=== PATIENT | female | born 1955 | race Caucasian/White ===

== ENCOUNTER 2016-11-08 11:51 | Emergency (ER) | payer OTHER ==
--- NOTE | ~2016-11-08 | ER ---
PATIENT'S NAME: UNIQUE RASMUSSEN [facility] AGE: 61 Y [address] ROOM: [place] [address] LOCATION: [facility] ADMIT DATE: 11/08/2016 ER/Outpatient Report DISCHARGE DATE: 11/08/2016 FAMILY PHYSICIAN: Bhakti Mullen MD ATTENDING PHYSICIAN: Rigo Mckenna Time of arrival: 1230. Time of exam: 1230. CHIEF COMPLAINT: Shaking headache. HISTORY OF PRESENT ILLNESS: The patient states she started feeling shaking and feverish around 1115 today. She has been nauseated, but no vomiting. Did have some diarrhea stool. She thinks is due to the food that she ate. She is here visiting from [place]. Her was seen Tuesday night admitted for sepsis. She states she has recently finished some prednisone for a sinus infection, but has not been on any antibiotic for sinus infection. Continues to have sinus congestion. States she has been more tired lately, but relates that to her being ill and her sleeping at her friend's house. She denies having a cough. Has not had any pain anywhere other than the mild headache. She has not had any abdominal pain. She has not had any pain with urination. No change in her bowel pattern today. States that the diarrhea was yesterday. ALLERGIES: SHE HAS NO KNOWN ALLERGIES. CURRENT MEDICATIONS: On the chart and reviewed by me. PAST MEDICAL HISTORY: Seizures, recent sinus congestion with frequent sinus infections. SOCIAL HISTORY: She lives in [place] with her . Denies use of tobacco, drugs, or alcohol. REVIEW OF SYSTEMS: All negative other than those mentioned in the HPI. PHYSICAL EXAMINATION: VITAL SIGNS: She weighs 81.6 kg, blood pressure was 134/82, pulse of 90, respirations 18, temperature of 99.7, and O2 saturation was 96% on room air. GENERAL: She is awake, alert, and oriented x4. PATIENT'S NAME: UNIQUE RASMUSSEN [facility] AGE: 61 Y [address] ROOM: [place], [place] [address] LOCATION: [facility] ADMIT DATE: 11/08/2016 ER/Outpatient Report DISCHARGE DATE: 11/08/2016 FAMILY PHYSICIAN: Bhakti Mullen MD ATTENDING PHYSICIAN: Rigo Mckenna SKIN: Hypericum, warm, and dry. RESPIRATIONS: Even and nonlabored. Pupils are equal and reactive to light. TMs are injected. Nasal is red and edematous. Oropharynx is red posteriorly. No exudate is noted. NECK: Supple. No lymphadenopathy. LUNGS: Lung sounds are clear throughout. HEART: Regular rate and rhythm. ABDOMEN: Soft, nondistended. Bowel sounds are present. EXTREMITIES: She moves all extremities strongly and equally and walked with a steady even gait. LABORATORY DATA AND X-RAYS: Lab work was completed. CBC shows a white count of 17.1. Chem panel: Sodium is 141, potassium 3.3, and chloride 105. Lactate was 1.5. Procalcitonin was normal. Clean-catch UA is negative. IMPRESSION: Sinusitis. PLAN: Home, rest. Fluids. Tylenol or ibuprofen for fever and discomfort. Prescription was written for Omnicef. She is to follow up with her primary provider in the next 2 to 3 days. She verbalized understanding. LUCITA VERDUZCO APRN FOR MD JAN CHINCHILLA/scar /[id number] d: 11/08/160 t: 11/17/16 1058, OUTPATIENT REPORT
[2016-11-08 12:59] LABS: BASOPHIL % 0.2 %; EOSINOPHIL # 0.1 K/uL (0.0-0.5); EOSINOPHIL % 0.5 %; HEMATOCRIT 43.2 % (33.0-46.0); HEMOGLOBIN 14.3 g/dL (10.0-15.0); IMMATURE GRANULOCYTE # 0.1 K/uL (0.0-0.3); IMMATURE GRANULOCYTE % 0.5 %; LYMPHOCYTE # 2.6 K/uL (0.8-4.0); LYMPHOCYTE % 14.9 %; MCH 30.8 pg (27.0-34.0); MCHC 33.1 gm/dL (32.0-36.5); MCV 93.1 fl (83.0-98.0); MONOCYTE # 1.2 K/uL (0.0-1.0); MONOCYTE % 7.1 %; MPV 10.1 fl (9.4-12.4); NEUTROPHIL # (ANC) 13.1 K/uL (1.8-7.8); NEUTROPHIL % 76.8 %; NRBC % 0 /100WBC (0-0.00); PLATELET COUNT 362 K/uL (150-450); RBC 4.64 M/uL (3.50-5.50); RDW-CV 13.7 % (11.9-14.6)
[2016-11-08 13:00] LABS: WBC 17.1 K/uL (4.0-11.0)
[2016-11-08 13:18] LABS: ALBUMIN 3.9 gm/dL (3.5-5.0); ALK PHOS 88 IU/L (33-138); ALT 22 IU/L (12-78); ANION GAP 10.3 (10.0-19.0); AST 17 IU/L (10-40); BLOOD UREA NITROGEN 10 mg/dL (6-24); CALCIUM 8.2 mg/dL (8.5-10.5); CHLORIDE 105 mMol/L (96-110); CO2 29 mMol/L (22-32); CREATININE 0.6 mg/dL (0.5-1.1); POTASSIUM 3.3 mMol/L (3.7-5.1); SODIUM 141 mMol/L (135-145); TOTAL BILIRUBIN 0.3 mg/dL (0.0-1.5); TOTAL PROTEIN 7.6 g/dL (6.0-8.4)
[2016-11-08 14:00] LABS: BILIRUBIN URINE NEGATIVE (NEGATIVE); BLOOD URINE NEGATIVE /UL (NEGATIVE); COLOR URINE YELLOW (YELLOW); GLUCOSE URINE NEGATIVE (NEGATIVE); KETONE URINE NEGATIVE (NEGATIVE); LEUKOCYTES URINE NEGATIVE /UL (NEGATIVE); NITRITE URINE NEGATIVE (NEGATIVE); PROTEIN URINE NEGATIVE (NEGATIVE); TURBIDITY URINE CLEAR (CLEAR); UROBILINOGEN URINE NORMAL (NORMAL)
== END 2016-11-08 14:23 | disposition disaster alternative care site (69) ==
LOC: GMED 11:51
PROVIDERS: Nurse Practitioner Family
DX: J32.9 Chronic sinusitis, unspecified (principal); G40.909 Epilepsy, unspecified, not intractable, without status epilepticus; Z79.899 Other long term (current) drug therapy